=== PATIENT | female | born 1975 | race Caucasian/White ===

== ENCOUNTER 2020-03-13 06:19 | Inpatient (IN) | payer MEDICAID, SELFPAY ==
[~2020-03-13] VITALS: Ht 154.9 cm; Wt 62.6 kg
[2020-03-13 07:14] LABS: HCG,QUAL RESULT NEGATIVE (NEGATIVE)
[2020-03-13] MEDS ORDERED: LR 1,000 ML IV.SOLN IV ONE (07:35)
[2020-03-13] MEDS ORDERED: SEVOFLURANE 15 MIN GAS INH ONE (07:35)
[2020-03-13] MEDS ORDERED: NS IRRIG SOLN 1000 ML IR ONE (07:35)
[2020-03-13] MEDS ORDERED: MIDAZOLAM HCL 5 MG/5 ML VIAL IVP ONE (07:35)
[2020-03-13] MEDS ORDERED: CEFAZOLIN 2 GM IVPB PREMIX 50 ML IV ONE (07:35)
[2020-03-13] MEDS ORDERED: METOCLOPRAMIDE HCL 10 MG/2 ML VIAL IVP ONE (07:35)
[2020-03-13] MEDS ORDERED: fentaNYL CITRATE/PF 100 MCG/2 ML AMP IVP ONE (07:35)
[2020-03-13] MEDS ORDERED: GLYCOPYRROLATE 0.2 MG/ML VIAL IJ ONE (07:35)
[2020-03-13] MEDS ORDERED: ROCURONIUM BROMIDE 10 MG/ML (ZEMURON) IV ONE (07:35)
[2020-03-13] MEDS ORDERED: PHENYLEPHRINE HCL 10 MG/ML VIAL (NEOSYNEPHRINE) IV ONE (07:35)
[2020-03-13] MEDS ORDERED: ONDANSETRON HCL 4 MG/2 ML VIAL IVP ONE ×2 (07:35)
[2020-03-13] MEDS ORDERED: PROPOFOL 200MG/ 20ML VIAL (DIPRIVAN) IV ONE (07:35)
[2020-03-13] MEDS ORDERED: LR 1,000 ML IV SCH ×2 (07:45→09:00)
[2020-03-13] MEDS ORDERED: IBUPROFEN 800 MG TABLET PO PRN (07:45)
[2020-03-13] MEDS ORDERED: OXYCODONE/ACETAMINOPHEN 5-325 TABLET PO PRN (07:45)
[2020-03-13] MEDS ORDERED: ONDANSETRON HCL 4 MG/2 ML VIAL IVP PRN ×2 (07:45→09:00)
[2020-03-13] MEDS ORDERED: KETOROLAC TROMETHAMINE 30 MG VIAL IVP PRN ×4 (07:45→09:00)
[2020-03-13] MEDS ORDERED: HYDROmorphone 2 MG/ML VIAL IVP PRN (07:45)
[2020-03-13] MEDS ORDERED: METOCLOPRAMIDE HCL 10 MG/2 ML VIAL IVP PRN (09:00)
[2020-03-13] MEDS ORDERED: HYDROmorphone 1 MG INJ. 1 MG/ML AMPUL IVP PRN ×2 (09:00)
[2020-03-13] MEDS ORDERED: HYDROmorphone 1 MG INJ. 1 MG/ML AMPUL ONE (09:28)
[2020-03-13] MEDS ORDERED: KETOROLAC TROMETHAMINE 30 MG VIAL ONE (10:05)
--- NOTE | 2020-03-13 10:05 | NUR ---
[facility] admission: Received 44 yrs old female from PACU via a gurney. Patient is alert,oriented x4, states having abdominal incision pain 7/10 but much better than before. She is on LR IVF from PACU via right hand # 20G, no sign of infiltrated noted. Pelvic incision is with dry dressing and abdominal binder, no any bleeding noted.SCDs are on both legs. Rolon catheter is in place with clear yellow urine. Start patient with Clear liquid diet and will advance as tolerated as ordered. Will continue monitor.
[2020-03-13 10:10] VITALS: BP_SYST 94
--- NOTE | 2020-03-13 10:50 | NUR ---
Start a new IVF with LR at 125 ml/hr as ordered. No sign of infiltration.
--- NOTE | 2020-03-13 11:28 | NUR ---
RN round: Patient is sleeping comfortable, no sign of distress. V/S stable.
[2020-03-13] MEDS: OXYCODONE/ACETAMINOPHEN 5-325 TABLET PO PRN (13:54)
[2020-03-13 15:44] VITALS: BP_SYST 101
[2020-03-13] MEDS: SIMETHICONE 80 MG TAB.CHEW PO PRN (17:32)
--- NOTE | 2020-03-13 17:48 | NUR ---
RN round: Patient is having gas pain. Simethicone PO given as PRN order. Encourage patient to ambulate.
--- NOTE | 2020-03-13 19:04 | NUR ---
Closing note: Patient is stable, ambulates well on the hallway with minimal abdominal pain. Patient is tolerating regular diet well. DC IVF as ordered. Rolon catheter is draining well with >500 ml of clear yellow urine .
--- NOTE | 2020-03-13 19:20 | NUR ---
Opening note Received patient awake, AOx4, resting in bed, no s/sx of distress and non labored breathing. She reports pain is tolerable, and not requesting pain med. IV is SL to right hand. Rolon catheter is draining to gravity. Bed is locked in lowest position, side rails up 2x. Updated board and reviewed plan of care.
[2020-03-13 20:00] VITALS: BP_SYST 104
--- NOTE | 2020-03-13 21:02 | NUR ---
Pain med Patient is reporting abdominal-pelvic pain 12/02 and was given 2 tabs Percocet for severe pain as ordered. Will continue to monitor.
--- NOTE | 2020-03-13 22:05 | NUR ---
DC Rolon Patient reports pain decreased to 2/10. Reviewed procedure for removal of Rolon catheter with patient, she verbalized understanding, it was removed, tolerated.
[2020-03-14 00:47] VITALS: BP_SYST 120
[2020-03-14] MEDS: SIMETHICONE 80 MG TAB.CHEW PO PRN ×2 (01:24→05:36)
--- NOTE | 2020-03-14 01:24 | NUR ---
Mylicon Patient reporting abdominal gas discomfort and administered Mylicon as ordered.
[2020-03-14] MEDS: OXYCODONE/ACETAMINOPHEN 5-325 TABLET PO PRN ×2 (05:37→15:11)
--- NOTE | 2020-03-14 05:38 | NUR ---
Pain med Patient reporting moderate pain and gas pain. She reports she has not passed gas yet. Administered Percocet for moderate pain and Mylicon as ordered.
--- NOTE | 2020-03-14 06:01 | NUR ---
Ambulate in hallway Patient ambulated in hallway with a walker, from from her room in [facility] to [place] unit.
--- NOTE | 2020-03-14 06:29 | NUR ---
void Patient voided, yellow ua.
--- NOTE | 2020-03-14 06:55 | NUR ---
closing note Patient is awake, resting on chair by bedside. No distress, non labored breathing, and denies pain; she was given pain med at 0537. IV is SL to right hand. Needs met throughout shift, will endorse care to day shift nurse.
[2020-03-14 07:16] LABS: BASOPHILS % (AUTO) 0.3 % (0.0-2.0); EOSINOPHILS # (AUTO) 0.2 K/uL (0.0-0.4); EOSINOPHILS % (AUTO) 1.6 % (0.0-4.0); HEMATOCRIT 33.5 % (36-48); HEMOGLOBIN 11.3 g/dL (12.0-16.0); LYMPHOCYTES # (AUTO) 3.5 K/uL (1.0-5.5); LYMPHOCYTES % (AUTO) 35.1 % (20.5-51.5); MEAN CORPUSCULAR HEMOGLOBIN 30 pg (27-31); MEAN CORPUSCULAR HGB CONC 34 % (32-36); MEAN CORPUSCULAR VOLUME 90 fL (79.0-98.0); MONOCYTES # (AUTO) 0.6 K/uL (0.0-1.0); MONOCYTES % (AUTO) 5.8 % (1.7-9.3); NEUTROPHILS # (AUTO) 5.7 K/uL (1.8-7.7); NEUTROPHILS % (AUTO) 57.2 % (40.0-70.0); PLATELET COUNT (AUTO) 347 K/uL (130-430); RED BLOOD CELL COUNT(AUTO) 3.74 MIL/uL (4.2-6.2); RED CELL DISTRIBUTION WIDTH 14.6 % (9.0-15.0); WHITE BLOOD COUNT (AUTO) 9.9 K/uL (4.8-10.8)
[2020-03-14 08:50] VITALS: BP_SYST 113
--- NOTE | 2020-03-14 08:50 | NUR ---
Routine Patient sitting in chair at bedside; denies any pain at this time. Patient stable.
--- NOTE | 2020-03-14 11:35 | NUR ---
Routine Patient ambulated to bathroom and back to bed. Patient stable at this time.
[2020-03-14 12:34] VITALS: BP_SYST 115
--- NOTE | 2020-03-14 15:12 | NUR ---
Routine Patient medicated for 6/10 abdominal pain. Patient stable at this time.
[2020-03-14 16:08] VITALS: BP_SYST 123
--- NOTE | 2020-03-14 16:10 | NUR ---
Routine Patient resting comfortably in bed with eyes closed. Patient stable.
--- NOTE | 2020-03-14 17:00 | NUR ---
Routine Patient asleep with no distress noted at this time. Patient stable.
--- NOTE | 2020-03-14 19:25 | NUR ---
OPENING NOTE RECEIVED PATIENT IN BED SLEEPING, AROUSABLE TO AUDITORY STIMULATION. NO SIGNS OF DISTRESS NOTED. ABDOMINAL BINDER IN PLACE, SURGICAL DRESSING CLEAN DRY AND INTACT. IV PATENT AND INTACT, FLUSHING WELL. SAFETY AND FALL PRECAUTIONS IN PLACE. BED LOCKED IN LOW POSITION WITH CALL LIGHT IN REACH. WILL CONTINUE TO MONITOR.
--- NOTE | 2020-03-14 22:00 | NUR ---
RN ROUNDS PATIENT RESTING IN BED, NO SIGNS OF DISTRESS NOTED. PROVIDED SNACK.
[2020-03-15] VITALS: BP_SYST 109
[2020-03-15] MEDS: OXYCODONE/ACETAMINOPHEN 5-325 TABLET PO PRN ×2 (00:36→11:04)
--- NOTE | 2020-03-15 00:40 | NUR ---
PAIN MEDICATION PATIENT COMPLAINS OF ABDOMINAL PAIN, MEDICATED ORDERED. WILL CONTINUE MONITOR.
--- NOTE | 2020-03-15 02:15 | NUR ---
RN ROUNDS PATIENT SLEEPING, NO SIGS OF DISTRESS. CALL LIGHT IN REACH.
--- NOTE | 2020-03-15 06:00 | NUR ---
CLOSING NOTE PATIENT IN BED AWAKE. PATIENT DENIES ABDOMINAL PAIN AT THIS TIME. PATIENT REPORTS PASSING GAS AND URINATING WITH NO COMPLICATIONS NOTED. NO BM YET. PATIENT AMBULATES STEADILY HOWEVER USES WALKER TO AMBULATE DURING TIMES SHE HAS PAIN. RESPIRATIONS EVEN AND UNLABORED ON ROOM AIR. IV SITE REMAINS PATENT AND INTACT, FLUSHING WELL. SAFETY AND FALL PRECAUTIONS MAINTAINED THROUGHOUT SHIFT. ALL NEEDS MET. PATIENT STABLE. BED LOCKED IN LOW POSITION WITH CALL LIGHT IN REACH. PATIENT STILL REFUSES BED ALARM AT THIS TIME.
--- NOTE | 2020-03-15 07:30 | NUR ---
OPENING NOTES: RECEIVED PATIENT FROM SERVICE CAR DRIVER NURSE. PATIENT IS AWAKE AND ALERT x4 LAYING DOWN IN BED. PATIENT IS TOLERATING OXYGEN ON ROOM AIR WITH NO SIGNS OF DISTRESS OR SHORTNESS OF BREATH NOTED. IV SITE IS PATENT WITH NO SIGNS OF INFILTRATION NOTED. PATIENT DENIES ANY PAIN AT THE MOMENT. PATIENT IN STABLE CONDITION. SAFETY, FALL, AND ASPIRATION PRECAUTIONS ARE IN PLACE. BED LOCKED IN LOWEST POSITION WITH CALL LIGHT IN REACH. WILL CONTINUE TO MONITOR PATIENT FOR ANY CHANGES.
[2020-03-15 08:00] VITALS: BP_SYST 114
--- NOTE | 2020-03-15 10:02 | NUR ---
RN ROUNDS: PATIENT IS AWAKE AND ALERT x4 LAYING DOWN IN BED ON HER PHONE. PATIENT DENIES ANY PAIN AT THE MOMENT. PATIENT IS TOLERATING OXYGEN ON ROOM AIR WITH NO SIGNS OF DISTRESS OR SHORTNESS OF BREATH NOTED. IV SITE IS PATENT WITH NO SIGNS OF INFILTRATION NOTED. PATIENT IN STABLE CONDITION. WILL CONTINUE TO MONITOR PATIENT FOR ANY CHANGES.
--- NOTE | 2020-03-15 10:50 | NUR ---
Nutrition Update Terry Scale 18 noted. Pt admitted for intramural leiomyoma of uterus. Diet: regular BMI: 26.1 kg/m2 RD to follow per nutrition care standards.
--- NOTE | 2020-03-15 11:04 | NUR ---
PAIN: PATIENT COMPLAINS OF ABDOMINAL PAIN 10/02. PRN PERCOCET GIVEN TO PATIENT. PATIENT TOLERATED IT WELL. WILL REASSESS PATIENT. Addendum: 03/15/20 at 1238 by Emma Gonzalez RN PAIN REASSESSMENT: PATIENT STATES SHE HAS NO MORE PAIN AND IS DOING GOOD. WILL CONTINUE TO MONITOR.
[2020-03-15 11:34] VITALS: BP_SYST 110
--- NOTE | 2020-03-15 12:38 | NUR ---
RN ROUNDS: PATIENT IS AWAKE AND ALERT x4 SITTING UP IN BED EATING LUNCH. PATIENT DENIES ANY PAIN AT THE MOMENT. PATIENT IS TOLERATING OXYGEN ON ROOM AIR WITH NO SIGNS OF DISTRESS OR SHORTNESS OF BREATH NOTED. IV SITE IS PATENT WITH NO SIGNS OF INFILTRATION NOTED. PATIENT IN STABLE CONDITION. WILL CONTINUE TO MONITOR PATIENT FOR ANY CHANGES.
[2020-03-15 13:49] VITALS: BP_SYST 106
--- NOTE | 2020-03-15 14:06 | NUR ---
RN ROUNDS: PATIENT IS AWAKE AND ALERT x4 LAYING DOWN IN BED. PATIENT IS TOLERATING OXYGEN ON ROOM AIR WITH NO SIGNS OF DISTRESS OR SHORTNESS OF BREATH NOTED. PATIENT DENIES ANY PAIN AT THE MOMENT. IV SITE IS PATENT WITH NO SIGNS OF INFILTRATION NOTED. PATIENT IN STABLE CONDITION. WILL CONTINUE TO MONITOR PATIENT FOR ANY CHANGES.
[2020-03-15 15:31] VITALS: BP_SYST 106
[2020-03-15] MEDS ORDERED: OXYC-128 PO (15:48)
[2020-03-15] MEDS ORDERED: IBUP-1971 PO (15:49)
[2020-03-15] MEDS ORDERED: DOCU-144 PO (15:50)
--- NOTE | 2020-03-15 16:30 | NUR ---
D/C Patient: Patient given medication reconciliation form and D/C instructions. Exit Care provided. Patient verbalized understanding. MD discussed with patient the results and treatment provided. Ambulatory with steady gait for discharge to home. Patient in stable condition, ID band removed. IV catheter removed, intact and dressing applied, no active bleeding. Rx of Percocet, Motrin, and Colace given. Patient educated on pain management. All belongings sent with patient.
== END 2020-03-15 16:30 | disposition home or self-care (01) | DRG 519 ==
LOC: SMU 06:19
PROVIDERS: ADMIT Obstetrics & Gynecology; ATTEND Obstetrics & Gynecology
PROC: 0UT90ZL Resection of Uterus, Supracervical, Open Approach (ICD-10-PCS; principal; 2020-03-13 07:30)
DX: D25.9 Leiomyoma of uterus, unspecified (principal); N92.0 Excessive and frequent menstruation with regular cycle; Z20.828 Contact with and (suspected) exposure to other viral communicable diseases
CPT/HCPCS: 36415; 84703; 85025; 86886; 86900; 86901; 87081; 88307; 94010; J0690; J1170; J1885; J2250; J2370; J2405; J2704; J2765; J3010; J3490; J7120; U0003

== ENCOUNTER 2020-03-18 12:48 | Emergency (ER) | payer MEDICAID, SELFPAY ==
[~2020-03-18] VITALS: Ht 154.9 cm; Wt 61.7 kg
[~2020-03-18 12:48] MED LIST: DOCU-144 PO; IBUP-1971 PO; OXYC-128 PO
[2020-03-18 12:52] VITALS: BP_SYST 143
[2020-03-18] MEDS: KETOROLAC TROMETHAMINE 60 MG/2 ML VIAL IM ONE (13:13)
[2020-03-18 14:19] VITALS: BP_SYST 143
[2020-03-18] MEDS: MINERAL OIL 133 ML ENEMA RC ONE (14:23)
== END 2020-03-18 14:19 | disposition home or self-care (01) ==
LOC: SED 12:48
DX: K59.00 Constipation, unspecified (principal); R10.30 Lower abdominal pain, unspecified; Z79.899 Other long term (current) drug therapy; Z90.710 Acquired absence of both cervix and uterus
CPT/HCPCS: 74018; 96372; 99283